=== PATIENT | male | born 1975 | race Caucasian/White ===

== ENCOUNTER → 2017-11-30 | Outpatient (CLI) | payer OTHER ==
[~2017-11-30] MED LIST: ANASPAZ0.125 MG SL; FLONASE; IBUPROFEN 800800 M1 PO; NEXIUM40 MG PO; RELAFEN500 MG PO; TRAMADOL 50 MG50 MG PO
== END ==
LOC: CAT 10:12
DX: Z13.6 Encounter for screening for cardiovascular disorders (principal); E78.00 Pure hypercholesterolemia, unspecified